=== PATIENT | male | born 1955 | race Caucasian/White ===

== ENCOUNTER 2023-06-17 09:56 | Day surgery (SDC) | payer OTHER, SELFPAY ==
[2023-06-17] VITALS (15 sets, daily range): BP systolic 83–163; BP diastolic 47–87; PULSE 47–82; RESP 14–16; TEMP 36.1–36.6; O2SAT 90–99; BMI 33.7
--- NOTE | 2023-06-17 10:13 | EKG12_ITS ---
Test Reason : PRE OP Blood Pressure : / mmHG Vent. Rate : 063 BPM Atrial Rate : 063 BPM P-R Int : 206 ms QRS Dur : 088 ms QT Int : 458 ms P-R-T Axes : 039 -24 146 degrees QTc Int : 468 ms Normal sinus rhythm Left ventricular hypertrophy with repolarization abnormality ( R in aVL , Maxim product ) Abnormal ECG No previous ECGs available Confirmed by Kobi Castellanos ([id number]), subeditor STELLA LOCK ([id number]) on 06/29/2023 9:03:19 AM Referred By: Pierre Tyler Confirmed By:Kobi Castellanos
--- NOTE | 2023-06-17 10:24 | PCM.HP.BLA ---
History and Physical Date of Admission: 06/17/23 Intake Vital Signs 06/06/2407:22 Height 5 ft 9 in Weight: 231 lb BMI 34.1 BP 175/102 H Blood Pressure Location Rt brachial Position Sitting Respiration 18 Pulse 71 Pulse Source Monitor Pulse Oximetry (%) 96 Oxygen Delivery Method room air Intake Visit Reasons: UMBILICAL HERNIA Chief Complaint: Umbilical Hernia Field Operations Technician Required: No Accompanied by: Is patient in pain?: No Allergies No Known Allergies Allergy (Unverified 06/06/23 08:23) Medications hydrochlorothiazide 25 mg tablet 25 mg PO DAILY 06/06/23 [History Confirmed 06/06/23] losartan 100 mg tablet 100 mg PO DAILY 06/06/23 [History Confirmed 06/06/23] PFSH Medical History (Updated 06/06/23 @ 09:[address] Pierre Tyler MD) Hypertension Umbilical hernia Surgical History (Updated 06/06/23 @ 08:21 by Vanessa Murillo) History of amputation History of wisdom tooth extraction Family History (Updated 06/06/23 @ 08:22 by Vanessa Murillo) Brother Cancer LymphomaFather Cancer Social History (Updated 06/06/23 @ 08:22 by Vanessa Murillo) Smoking Status: Former smoker alcohol intake: never substance use type: does not use HPI HPI HPI: Patient is a 67-year-old male here for umbilical hernia. He says has been there for several years. It is growing larger. He denies any nausea or vomiting. He has no fevers or chills. It is not reproducible. He has never had surgery. ROS General General: No weight change, appetite, fatigue, colon cancer, breast cancer or weakness HEENT HEENT: No difficulty swallowing, eye injury, eye surgery, swollen glands or hoarseness Endo Endocrine: No thyroid disease, diabetes mellitus, thyroid cancer, Hair loss, heat intolerance or cold intolerance Skin Skin: No rash or changing moles Breast Breast: No left breast lump, right breast lump, nipple discharge, breast pain, abnormal mammogram, abnormal US or breast enlargement Musc Musculoskeletal: No back problems, arthritis, rheumatoid arthritis, gout or joint pain Cardio Cardiovascular: Yes high blood pressure; No murmur, pacemaker, heart disease, atrial fibrillation, heart attack, heart stent, palpitations, shortness of breat with exertion or chest pain Psych Psychiatric: No depression, anxiety or hearing voices Resp Respiratory: No shortness of breath, No sleep apnea, Yes cough, No COPD, No asthma, No emphysema and No wheezing Gastro Gastrointestinal: No abdominal pain, No nausea or vomiting, No diarrhea, No constipation, No blood in stool, No acid reflux, No hemorrhoids, No ulcers, No gallbladder problem and No black,tarry stools Additional Details: Umbilical Hernia Trev Hematologic: No blood thinners, No blood disorders, No bleeding, No anemia and No blood clots Neuro Neurologic: No system reviewed and no additional complaints, except as documented, No as per HPI, No abnormal gait, No abnormal hearing, No abnormal movements, No abnormal speech, No behavioral changes, No burning sensations, No confusion, No convulsions, No disequilibrium, No dizziness, No localized weakness, No frequent falls, No headache(s), No lack of coordination, No loss of vision, No memory loss, No numbness, No other visual disturbances, No radicular pain, No restless legs, No sensory deficit, No syncope, No tingling, No tremor(s), No weakness and No other Exam Const General: cooperative Orientation: alert and oriented x3 HENOK Head: normal to inspection Neck Neck: normal visual inspection and full ROM Chest Chest palpation & inspection: normal inspection of the chest Resp Effort & Inspection: normal respiratory effort Auscultation: clear to auscultation bilaterally Cardio Rate: regular rate Rhythm: regular rhythm GI Inspection: non-distended Palpation: soft and nontender Skin General: no rashes or lesions noted Neuro General: patient alert and patient oriented x3 Extrem General: full ROM Psych Appearance: grossly normal Mental Status: mental status grossly normal Assessment and Plan Assessment and Plan (1) Umbilical hernia: Status: Acute Qualifiers: Obstruction and gangrene presence: without obstruction or gangrene Qualified Code(s): K42.9 - Umbilical hernia without obstruction or gangrene Plan: The patient has an umbilical hernia and recently had imaging at [facility]. I reviewed his CT scan. He has a 7 cm hernia sac but the defect is only 2.1 cm. It contains a large amount of abdominal fat. I discussed a hybrid laparoscopic open approach with him to reduce the hernia sac and the contents and then close the defect and then laparoscopically place mesh in an underlay fashion. I discussed the procedure as well as the risks including but not limited to bleeding, infection, injury other organ such as underlying bowel, need for mesh. I discussed mesh placement in detail as well. Patient understands all the risks and is willing to proceed. Pierre Tyler MD Pager: [facility] [address] [place] [address], [address] [place] [address] Office: I have examined the patient and the H&P has been reviewed. There are no clinical changes since date of exam.
[2023-06-17 10:54] LABS: Hematocrit 44.1 % (40-54); Hemoglobin 15.2 g/dL (13.0-16.5); Mean Corp Hgb Conc 34.5 g/dL (32-36); Mean Corpuscular Hgb 28.9 pg (27.0-32.0); Mean Corpuscular Volume 83.8 fL (80-94); Mean Platelet Vol. 8.5 fl (6.2-12.0); Platelet Count 225 K/mm3 (150-450); RBC Distribution Width CV 13.3 % (11.6-14.6); RBC Distribution Width SD 41.1 fl (35.1-43.9); Red Blood Count 5.26 M/mm3 (4.6-6.2); White Blood Count 10.6 K/mm3 (4.4-11.0)
[2023-06-17] MEDS: Lactated Ringers 1,000 ML 15 ML IV ×2 (10:56→13:03)
[2023-06-17 11:10] LABS: Anion Gap 1 (5-15); BUN 18 mg/dL (7-18); BUN/Creat Ratio 21.2 RATIO (10-20); Calcium,Total 8.6 mg/dL (8.5-10.1); Chloride 106 mmol/L (98-107); Creatinine, Serum 0.85 mg/dL (0.70-1.30); EST Glomerular Filtration Rate 96 mL/min (>60); Est Glom Filt Rate - Afr Amer 116 mL/min (>60); Estimated Creatinine Clearance 102.82 ml/min; Glucose 124 mg/dL (74-106); Potassium 3.5 mmol/L (3.5-5.1); Sodium Level 139 mmol/L (136-145)
[2023-06-17] MEDS: Cefazolin 2 GM in 0.9% Normal Saline (100mL Bag) 100 ML IV (11:22)
--- NOTE | 2023-06-17 11:30 | HERN_PTH ---
PATIENT: DELORIS LO LOC: [facility] [place] U#:[id number] AGE/SX: 67/M ROOM: RE06/17/[address]: Dr. Pierre Tyler MD : [id number] BED: DIS: 06/17/2023 SPEC #: [id number] RECD: 06/17/23 13:32 STATUS: ROSITA SYMONE #: [id number] SRINIVAS: 06/17/23 11:[address]: Pierre Tyler DEPT: SURGICAL PATHOLOGY RECD BY: Analy Hilliard ENTERED: 06/20/23 07:18 SP TYPE: Hernia OTHR DR: TESS Gilliland Tissues: HERNIA Procedures: Surgery Specimen Level II HEADER OPERATION: Hybrid lap/open hernia, umbilical repair with mesh PRE-OP DIAGNOSIS: Umbilical hernia TISSUE SUBMITTED: Hernia sac MICROSCOPIC DIAGNOSIS Hernia sac: Fragments of fibroadipose and fibroconnective tissue, consistent with hernia sac with chronic inflammation and reactive changes. SJ/mr 06/21/23 MICROSCOPIC DESCRIPTION Slides are reviewed. GROSS DESCRIPTION Received in fixative is one container labeled with the patient's name and designated Hernia sac. The specimen consists of two irregular fragments of yellow berger fibrofatty tissue measuring in aggregate 7.0 x 3.0 x 1.0cm. No mass lesions are identified. Iron Carrier sections are submitted in one cassette. / 06/20/2023 TC:5 CPT: 51456
[2023-06-17] MEDS: Bupiv/Epi 0.25% 30 ML Vial (11:58)
--- NOTE | 2023-06-17 12:25 | OP.PCM_ITS ---
Report of Operation Date of Procedure: 06/17/23 Pre-Operative Diagnosis: Umbilical hernia under 3 cm Post-Operative Diagnosis: Same Surgery/Procedure Performed:: Laparoscopic/open hybrid ventral hernia repair with mesh Type of Anesthesia: General/Regional Specimen's removed: Hernia sac Estimated Blood Loss (mL): 10 Description of Procedure: Patient was brought back to the operating room and general anesthesia was induced. The abdomen was prepped and draped in usual sterile fashion. Midline incision was made superior to the umbilicus and deepened to subcutaneous tissue. The hernia was identified and the hernia sac was bluntly dissected free from the surrounding attachments. The hernia contents were incarcerated and unable to be reduced. The edge of the fascia was elevated and slightly incised. The hernia sac was then opened and removed from the hernia contents and resected and sent for pathology. The hernia contents were reduced into the abdomen. The hernia was closed with interrupted [id number] #1 Nurolon sutures leaving the middle suture untied. Next a 12 mm ports placed through the hernia and the abdomen was insufflated to 15 mmHg. Camera was placed into the abdomen and then the left lateral abdominal sidewall two 5 mm ports were placed. Next the camera was placed through one of the 5 mm ports and then the mesh was rolled and placed through the 12 mm port. A 4.[address] with echo positioning device was chosen. After the mesh was rolled and placed into the abdomen the balloon on the port was removed and the port was taken out. The last stitch was closed in the hernia and then the abdomen was allowed to reinsufflate. The tail of the mesh was kept in the incision. Next the echo positioning device was inflated a nd the mesh was lifted to the anterior abdominal wall. Next secure strap tacks were used to secure the mesh to the anterior abdominal wall in 4 quadrants and then the balloon was removed from the mesh and removed from the abdomen. It was removed intact and fully. Next secure strap tacker was used to secure the mesh to the anterior abdominal wall and 2 rows circumferentially. There was good hem ostasis. The abdomen was then allowed to desufflate and the 5 mm ports were removed. The hernia cavity was irrigated and suctioned dry. There was good hemostasis. All the incisions were injected with local anesthetic and closed with interrupted 4-0 Monocryl sutures and Steri-Strips and bandages. Patient was awoken and brought to PACU in stable condition and tolerated the procedure well. Grafts/Implants Used: 4.[address] mesh Admit VTE Documentation VTE Mechan Device Prophylaxis: SCD's
--- NOTE | 2023-06-17 12:33 | DCINST_ITS ---
Discharge Instructions Procedure Hernia Diet Discharge Diet: Light diet - advance as tolerated Activity Discharge Activity: May Not Drive (for 2-3 days or while taking narcotic pain meds.) and May Shower (with the bandage in place 1-2 days after surgery.) Lifting Restrictions: 20 pounds for 4 weeks. Additional Activity Instructions:: Climbing stairs is fine, walking is encouraged. Sitting in bed may be uncomfortable. Sitting up using your lateral muscles (sitting up sideways) is usually more comfortable. Do not drive, work heavy equipment of sign legal documents for 24 hours. Pain medications may cause nausea, you should typically eat light foods as you take your pain medications. Pain medications may also cause constipation. If you have difficulty with this, discuss with your doctor. Alternate ibuprofen and Tylenol for pain control, oxycodone for breakthrough pain Dressing / Incision Call your doctor if your incision/area has: Continuous Slow Oozing, Sudden Increased Bleeding, Increased Pain/ Swelling, Increased Redness and Foul Smelling Discharge Call your doctor if you observe: Fever of 101 or Higher Suture Line Care: Avoid Pulling/Pushing and Avoid Pinching/Bending Remove Dressing in: 2 days (Remove clear bandages in 2 days, remove Steri-Strips in 7 to 10 days.) Follow Up Care Please Follow Up With: Pierre Tyler MD When: Please call to schedule 2 week follow up appointment. [phone] Test Results: Test results from this visit will be discussed in further detail at your follow- up appointment, if applicable. Discharge Plan Admission Attending Provider: Pierre Tyler Primary Care Provider: Lucas Mancini Discharge Orders/Prescriptions Prescriptions: New oxycodone 5 mg Tablet 5 - 10 mg PO Q4H PRN PRN (Reason: Pain Score 4-10) 5 Days Qty: 20 0RF No Action hydrochlorothiazide 25 mg tablet 25 mg PO DAILY losartan 100 mg tablet 100 mg PO DAILY Referrals / Follow Up: Lucas Mancini PA [Primary Care Provider] - Disposition Disposition (needs filled in before D/C Order can be placed): Home, Self Care
== END 2023-06-17 16:10 | disposition home or self-care (01) ==
LOC: SDC 09:57 → AC 09:58
PROVIDERS: Anesthesiology; PCP Physician Assistant; Referring Provider Surgery; Visit Provider Surgery
PROC: 0WQF4ZZ Repair Abdominal Wall, Percutaneous Endoscopic Approach (ICD-10-PCS; CPT 49594; principal; 2023-06-17 11:10)
DX: K42.9 Umbilical hernia without obstruction or gangrene (principal); I10 Essential (primary) hypertension; Z87.891 Personal history of nicotine dependence; Z79.899 Other long term (current) drug therapy
CPT/HCPCS: 49594; 00830; 80048; 85027; 88302; 93005; J7120; J2405

== ENCOUNTER → 2024-03-27 | Outpatient (CLI) | payer OTHER, SELFPAY ==
[2024-03-29 12:08] LABS: PSA, Free 0.69 ng/mL; PSA, Free % 13.2 % (.)
== END | disposition home or self-care (01) ==
LOC: LAB 15:49
PROVIDERS: PCP Physician Assistant; Referring Provider Urology; Visit Provider Urology
DX: R97.20 Elevated prostate specific antigen [PSA] (principal)
CPT/HCPCS: 36415; 84153; 84154

== ENCOUNTER → 2024-05-04 | Outpatient (CLI) | payer OTHER, SELFPAY ==
--- NOTE | 2024-05-04 13:02 | MRI_ITS ---
PROCEDURE: PELVIS W/WO CONTRAST (MRIPELWW), 05/04/2024 REASON FOR EXAM: ELEVATED PSA. Per technologist report, PSA is 5.23 on 03/27/2024. TECHNIQUE: Multisequence multiplanar MRI pelvis was performed with and without IV contrast. CONTRAST: 20 milliliters Clariscan COMPARISON: None FINDINGS: Note diffusion is slightly limited by suboptimal signal to noise ratio, possibly related to 1.5 Mercedes field strength. Prostate size: 6.6 x 5.0 x 5.7 cm, estimated volume 98 mL (estimated PSA density 0.05 based on the above provided PSA). Small amount of T1 bright presumed post biopsy blood products in the LEFT mid and anterior gland. Transition zone: PI-RADS 2 findings. Peripheral Zone: Background changes of likely prostatitis (PI-RADS 2). Few circumscribed likely extruded/partially extruded transition zone nodules bilaterally. Neurovascular bundles: Unremarkable. Seminal vesicles: Unremarkable. Bladder: Underdistended and suboptimally evaluated. Bladder wall thickening and trabeculation suggesting chronic bladder outlet obstruction. Lymph nodes: External iliac nodes up to 9 mm short axis bilaterally. Bones: Heterogeneous marrow signal without frankly destructive bony lesions identified. 13 mm nonspecific T2 bright and enhancing lesion in the LEFT femoral head is not subarticular. No clear associated restricted diffusion or surrounding marrow edema. Other: None. MRI/Pelvis W/WO Contrast IMPRESSION: 1. Prostatomegaly/BPH and sequela of likely prostatitis without high risk lesio n identified (PI-RADS 2). 2. 13 mm lesion in the LEFT femoral head is not clearly degenerative and relati vely nonaggressive in appearance on nondedicated evaluation, though nonspecific. Correlate with medical history and any availab le outside imaging to establish stability however. If unavailable, consider attention on follow-up as indicated. Bone scan could also be considered. 3. Mild bilateral external iliac lymphadenopathy by PI-RADS criteria, nonspecif ic in the absence of known prostatic malignancy and potentially reactive. 4. Additional description as above. Reading Location: [id number]
== END | disposition home or self-care (01) ==
PROVIDERS: PCP Physician Assistant; Referring Provider Urology; Visit Provider Urology
DX: R97.20 Elevated prostate specific antigen [PSA] (principal)
CPT/HCPCS: 72197; A9575; A4216